=== PATIENT | female | born 2000 | race Caucasian/White ===

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

== ENCOUNTER 2022-03-01 07:42 | Inpatient (IN) ==
--- NOTE | 2022-03-01 10:56 | History & Physical Report ---
Date of Service March 01, 2022 Assessment & Plan (1) with 39 completed weeks gestation: (2) Encounter for supervision of normal intrauterine in primigravida, antepartum: Plan 21 year old female G1PO at 40 0/7. Irregular contractions. Plan for induction today. Admission and Anticipated Discharge Date Admission Date: March 01, 2022 History of Present Illness Primary Care Provider: Malik Mckeon DO More is a 21 y/o female currently at 40 WGA with an VIELKA 03/01/2022 as determined by LMP who is here for induction. Irregular contractions; + movement; Minimal fluid loss- feels like she may have lost mucosus plug; no bloody show External FHT and external uterine monitors used; Category 1 tracing; moderate FHT variability. Had regular appointments with OB. Labs: (07/31/21) Blood type: A+ Antibody screen: Neg Hg: pending (today) Hct: pending (today) WBC: pending (today) Plt: pending (today) Rubella: immune VDRL/RPR: nonreactive Gonorrhea: neg Chlamydia: neg HIV: neg HbSAg: neg GBS: neg Other screens: neg cf/sma 07/2021 declines cfdna declines quad/afp - sln Allergies Allergy/AdvReac Type Severity Reaction Status Date / Time No Known Allergies Allergy Verified 02/26/22 10:36 Home Medications Medication Instructions Recorded Confirmed Type prenat.vits,bryan,hgp-hhzk-crcfe 1 tab PO DAILY 02/23/22 02/26/22 History Patient History Medical History No pertinent past medical history Surgical History S/P wisdom tooth extraction Family History (Updated 07/27/21 @ 13:18 by Izabella WILKES, MARILYNN) Grandmother (Maternal) Diabetes Focal glomerular sclerosis Family/Other Breast cancer Ovarian cancer Denies family history of Pancreatic cancer Prostate cancer Colorectal cancer Uterine cancer Social History (Updated 07/27/21 @ 13:11 by Izabella WILKES, RN) Smoking Status: Never smoker Second Hand Exposure: No; Do You Dip or Chew Tobacco: No; Tobacco Cessation Education Requested by Patient: No Hx Alcohol Use: No Hx Substance Use: No Preferred Language: Citizen Of The [place] Communication Ability: Effective Financial Services Auditor Required: No Beliefs That Will Affect Care: None marital status: Single marital status details: Christopher Licea (17) [phone] Current Living Situation: Parent and Significant Other Current Living Situation Comment: ANURADHA White, [place] Mother, Eder 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 Denies breast pain. Denies dysuria. Denies headache or changes in vision. Physical Exam Physical Exam: General: Alert, oriented. No acute distress. Cardiac: Regular rate and rhythm, no murmurs/rubs/gallops. Respiratory: Clear to auscultation bilaterally a/p, no wheezes/rales/rhonchi. No increased work of breathing. Symmetrical chest rise. No respiratory distress. Abdomen: Gravid Lower Extremities: No lower extremity edema or swelling. No deep calf pain. Joshua's negative bilaterally Supervising Physician Co-Signing Physician Notes Resident Physician Supervision Note: I was present with Dr. Liu during the history and exam. I discussed the case with the resident and agree with the findings and plan as documented in the note. Any exceptions or clarifications are listed here: pt here for elective induction at 39+wks. sve 2/90/-2 soft mid. efw 7-8#. plan pitocin and then arom. denies ?s and desires to proceed. routine labs. Fhts categ 1. Documented By: Gay Pandey MD, FACOG
[2022-03-01] MEDS ORDERED: OXYTOCIN 30 UNITS/500 ML BAG IV PRN ×2 (11:17→11:33)
[2022-03-01] MEDS: LACTATED RINGER'S 1,000 ML IV PRN ×4 (12:08→23:02)
[2022-03-01 12:29] LABS: Hemoglobin 9.4 g/dl (12.0-16.0); Mean Corpuscular Hemoglobin 26.3 pg (25.0-34.0); Mean Corpuscular Hgb Conc 31.3 g/dL (32.0-36.0); Mean Corpuscular Volume 83.8 fL (80.0-100.0); Mean Platelet Volume 11.2 fL (9.4-12.3); Platelet Count 228 K/uL (130-400); RDW Standard Deviation 42.5 fL (36.4-46.3); Red Blood Count 3.58 M/uL (3.93-5.22); White Blood Count 10.46 K/ul (4.8-10.8)
--- NOTE | 2022-03-01 16:04 | Labor Progress Brief Note ---
Date of Service March 01, 2022 Subjective feeling ctx. Assessment & Plan (1) with 39 completed weeks gestation: (2) Encounter for induction of labor: Plan cont with pit,will see how arom helps labor pattern. fhts categ 1. Admission and Anticipated Discharge Date Admission Date: March 01, 2022 Physical Exam Constitutional: WD/WN, vitals as above Genitourinary: Manual OB Exam: + cervical dilation (2-3cm), + cervical effacement 100%, + station -2 and + amniotic fluid (AROM) clear OB Exam Monitor Tracing: + external FHT monitor used, + external uterine monitor used (q2., pit at 15), + category I and + normal FHT variability Results & Data ([facility]) Vital Signs (Past 12 Hours) Vital Signs Temp Pulse Resp BP 03/01/22 15:54 72 138/71 03/01/22 15:23 76 130/71 03/01/22 15:01 16 03/01/22 15:01 98.1 F 16 03/01/22 14:53 77 127/78 03/01/22 14:01 88 133/78 03/01/22 13:47 84 130/72 03/01/22 13:30 90 131/74 03/01/22 13:16 83 133/73 03/01/22 13:01 79 130/70 03/01/22 12:45 88 129/76 03/01/22 11:45 16 03/01/22 11:45 16 03/01/22 12:31 90 135/79 03/01/22 12:18 81 128/74 03/01/22 11:09 97.9 F 18 Coding Level of Care Code None Diagnoses with 39 completed weeks gestation Z3A.39 Encounter for induction of labor Z34.90
[2022-03-01] MEDS ORDERED: ePHEDrine sulfate 50 MG/ML AMP ONE (16:59)
[2022-03-01] MEDS ORDERED: fentaNYL citrate 100 MCG/2 ML VIAL ONE (17:00)
[2022-03-01] MEDS ORDERED: BUPIVACAINE 0.25% 30 ML VIAL ONE (17:00)
[2022-03-01] MEDS ORDERED: SODIUM CHLORIDE 0.9% INJ 10 ML VIAL ONE (17:00)
[2022-03-01] MEDS ORDERED: fentaNYL 2MCG/ML ROPIVACAINE 1.25MG/ML 100 ML BAG EPI ONE (17:01)
[2022-03-01] MEDS ORDERED: LIDOCAINE 2%/EPINEPHRINE 1:200,000 20 ML SDV ONE (17:01)
[2022-03-01] MEDS ORDERED: ONDANSETRON INJ 2 MG/ML 2 ML VIAL IV PRN (17:08)
[2022-03-01] MEDS ORDERED: fentaNYL 2MCG/ML ROPIVACAINE 1.25MG/ML 100 ML BAG EPI PRN (17:08)
[2022-03-01] MEDS ORDERED: ePHEDrine sulfate 50 MG/ML AMP IV PRN (17:08)
[2022-03-01] MEDS ORDERED: NALBUPHINE HCL INJ 10 MG/ML AMP IV PRN (17:08)
[2022-03-01] MEDS ORDERED: diphenhydrAMINE 50 MG/ML VIAL IV PRN (17:08)
[2022-03-01] MEDS ORDERED: NALOXONE HCL 0.4 MG/1 ML VIAL/CARP IV PRN (17:08)
[2022-03-01] MEDS ORDERED: NALOXONE HCL 1 MG in SODIUM CHLORIDE 0.9% 1000ML 1,000 ML IV PRN (17:08)
--- NOTE | 2022-03-01 17:08 | Anesthesiology Consultation ---
Date of Service March 01, 2022 Assessment & Plan ASA ASA2 Proposed Anesthesia Anesthesia Type: Labor Epidural Risk / Benefits Reviewed With: PT / POA / Parent / Guardian, Accepts Plan and Informed Consent Obtained History Height/Weight Height: 5 ft 6 in Weight: 78.018 kg Allergies Allergy/AdvReac Type Severity Reaction Status Date / Time No Known Allergies Allergy Verified 03/01/22 14:21 Medications Home Medications Medication Instructions Recorded Confirmed Last Taken prenat.vits,bryan,fxi-[id number]-[id number] 1 tab PO DAILY 02/23/22 03/01/22 Unknown Active Medications Generic Name Dose Route Start Last Admin Trade Name Freq PRN Reason Stop Dose Admin Oxytocin 30 units in 500 mls @ 15 mls/hr 03/01/22 11:33 03/01/22 15:45 Pitocin IV 03/03/22 11:32 0.9 units/hr .Q24H PRN 15 mls/hr Labor Induction/Augmentation Titration Protocol 0.9 UNITS/HR Lactated Ringer's 1,000 mls @ 125 mls/hr 03/01/22 11:17 03/01/22 17:46 Lr IV 03/03/22 11:16 125 mls/hr .Q8H PRN Infusion L&D Protocol Protocol Past Medical History Medical History (Updated 03/01/22 @ 16:04 by Gay Pandey MD, FACOG) No pertinent past medical history Exercise / Class Metabolic Activity II 4-5 Yardwork/Stairs/Walk up hill Past Family History Family History Grandmother (Maternal) Diabetes Focal glomerular sclerosis Family/Other Breast cancer Ovarian cancer Denies family history of Pancreatic cancer Prostate cancer Colorectal cancer Uterine cancer Past Surgical History Surgical History S/P wisdom tooth extraction Past Anesthesia History No Hx of Anesthesia Complications and No Family Hx of Anesthesia Complications History of PONV No Hx of PONV and No Hx of Motion Sickness Social History Smoking Status: Never smoker Do You Dip or Chew Tobacco: No Hx Alcohol Use: No Hx Substance Use: No substance use type: does not use Review of Systems denies fever/cough/ colds/ chest pain/ SOB/ RICK denies RICK Physical Exam Vital Signs Last Vital Signs Temp 36.7 C 07/22/22 16:01 Pulse 91 H 03/01/22 17:48 Resp 16 03/01/22 17:45 BP 148/65 H 03/01/22 17:48 Pulse Ox 100 03/01/22 17:47 ENMT Mouth: no TMJ abnormality and no dentition abnormality Thyromental Distance: > or= 3.5 Finger Breadths Mallampati Class: II Neck neck extension not limited Respiratory normal respiratory effort; no respiratory distress Auscultation: lungs clear to auscultation bilaterally Cardiovascular Rate/Rhythm: regular rate and regular rhythm Neurologic moves all extremities Psychiatric Orientation: alert and oriented x 3 Testing Laboratory Results 03/01/22 11:44
[2022-03-01] MEDS ORDERED: NURSING L&D Epidural Breakthrough Pain Update ONE (20:21)
[2022-03-02] MEDS ORDERED: MINERAL OIL 30 ML UDC ONE (04:52)
[2022-03-02] MEDS ORDERED: miSOPROStoL 200 MCG TAB ONE (05:30)
[2022-03-02] MEDS ORDERED: METHYLERGONOVINE MALEATE 0.2 MG/ML AMP ONE (05:30)
[2022-03-02] MEDS ORDERED: IBUPROFEN 600 MG TAB PO PRN (05:48)
[2022-03-02] MEDS ORDERED: OXYTOCIN 30 UNITS/500 ML BAG IV PRN (05:48)
[2022-03-02] MEDS ORDERED: ACETAMINOPHEN 325 MG TAB PO PRN (05:48)
[2022-03-02] MEDS ORDERED: miSOPROStoL 200 MCG TAB PR ONE (05:48)
[2022-03-02] MEDS ORDERED: HYDROCORTISONE ACETATE 25 MG SUPP PR PRN (05:48)
[2022-03-02] MEDS ORDERED: DIPHTHERIA/TETANUS/PERTUSSIS 0.5 ML SYR/VIAL IM ONE (05:48)
[2022-03-02] MEDS ORDERED: METHYLERGONOVINE MALEATE 0.2 MG/ML AMP IM ONE (05:48)
[2022-03-02] MEDS ORDERED: BENZOCAINE 20% AER SPR 82.5 GM CAN EXT PRN (05:48)
--- NOTE | 2022-03-02 07:45 | Anesthesia Procedure Note ---
Date of Service March 02, 2022 Anesthesia Post Epidural Note Vital Signs Vital Signs: Temp Pulse Resp BP Pulse Ox 37.0 C 86 18 155/74 H 100 03/02/22 05:50 03/02/22 07:34 03/02/22 06:50 03/02/22 07:34 03/02/22 05:49 Pain Intensity Abdomen: Pain Intensity: 0 Notes Mental Status: alert / awake / arousable and participated in evaluation Nausea / Vomiting: adequately controlled Pain: adequately controlled Airway Patency, RR, SpO2: stable & adequate BP & HR: stable & adequate Hydration State: stable & adequate Neuraxial Anesthesia: was administered and sensory block is resolving Anesthetic Complications: no major complications apparent Epidural: Removed without complications and With tip intact
--- NOTE | 2022-03-02 09:47 | Operative Report (OR) ---
DATE OF SERVICE: 03/02/2022 PROCEDURE: Vacuum-assisted vaginal delivery with first-degree perineal laceration repair. SURGEON: Perry Lane MD PREOPERATIVE DIAGNOSES: 1. Single intrauterine at 40 weeks 1 day gestational age. 2. Elective induction of labor. 3. Maternal exhaustion. POSTOPERATIVE DIAGNOSES: 1. Single intrauterine at 40 weeks 1 day gestational age. 2. Elective induction of labor. 3. Maternal exhaustion. 4. Status post procedure. ESTIMATED BLOOD LOSS: 300 mL. DRAINS: Straight cath at the completion of the case. URINE OUTPUT: Approximately 300 mL via straight cath. COMPLICATIONS: Shoulder dystocia of 80 seconds duration. FINDINGS: Viable female with weight and Apgars pending. INDICATIONS: More is a 21-year-old G1, P0, admitted at 40 weeks 0 days gestational age for induction of labor for term . The patient was initially noted to be 2 cm dilated and was started on oxytocin per regular protocol. She later received an epidural and underwent artificial rupture of membranes for clear fluid. She progressed in labor to complete-complete, +2 station, at which time she felt the urge to push. The patient pushed for 2-1/2 hours and achieved +3 station. At that time, the patient was noted to be moving the baby well with pushing, although was exhausted and started to struggle with the pushing efforts. I discussed a vacuum-assisted delivery due to the maternal exhaustion and we discussed the risks of a vacuum-assisted delivery including the risk of a cephalohematoma, scalp lacerations, risk of the failure, and risk of shoulder dystocia. The patient verbally agreed to the vacuum-assisted delivery. DESCRIPTION OF PROCEDURE: The patient progressed to 10 cm dilated, 100% effaced, positive 3 station, pushed for 2-1/2 hours after which the patient was verbally consented for a vacuum-assisted vaginal delivery. The vacuum was applied 2 cm anterior to posterior fontanelle and over 3 contractions, traction was applied to within the recommended range based on the gauge from the vacuum. The suction on the vacuum was increased to within the green zone. The was noted to move down well and was at the time that the vacuum was removed, which was midway through the third contraction. The 's head then protruded with the last push on the third contraction and the patient was asked to stop pushing. A check for nuchal cord was performed and no nuchal cord was noted. There was noted to be a tight shoulder. The space on the anterior shoulder to the pubic bone was noted to be rather tight and it appeared that this was likely going to be a shoulder dystocia. The total shoulder dystocia time was 80 seconds. I immediately asked nursing to lay the head of the bed down and attempt to deliver the anterior shoulder. After the attempt was unsuccessful, I asked the nurse to apply suprapubic pressure, and then once again tried to attempt to deliver the anterior shoulder. The anterior shoulder did not deliver despite adequate attempt at the suprapubic pressure. Decision was made to try a delivery of the posterior shoulder. The axilla of the posterior arm was able to be hooked, was able to be grasped and brought up to the level of the introitus. The arm was then able to be swept outwardly for delivery of the posterior arm and shoulder. The anterior arm and shoulder then followed easily and the remaining body also delivered without any additional difficulty. was floppy upon delivery and the cord was quickly double clamped and cut. was taken to the waiting nursery staff. Cord blood segment and cord blood were obtained. Cord segment was ultimately disposed of as 5 minute was noted to be 9. The was noted to be vigorous shortly after delivery and was evaluated by the nursery staff at the warmer. Attention was then turned to delivery of the placenta, which was delivered intact, 3-vessel cord, gentle cord traction. On inspection of the perineum, vagina, cervix, there was noted to be a first-degree perineal laceration with extension of the right labia. These were repaired with 3-0 Vicryl in continuous running stitch. Needle, sponge, and instrument counts were correct at the completion of the case. The patient was given Methergine IM and Cytotec SC prior to ending the case. Both mother and were stable in the immediate post-delivery period. Job ID: [id number] [facility]
[2022-03-02] MEDS: DOCUSATE SODIUM 100 MG CAP PO SCH ×2 (10:46→21:06)
[2022-03-02] MEDS: PRENATAL VITAMIN 1 TAB PO SCH (10:46)
[2022-03-02] MEDS: FERROUS SULFATE 325 MG TAB PO SCH (10:46)
--- NOTE | 2022-03-03 05:44 | Obstetrical Progress Note ---
Date of Service March 03, 2022 Assessment & Plan (1) Vacuum-assisted vaginal delivery: Plan stable routine care. desires dc home. instructions reviewed. plan 6wk pp check. rec iron supplements + mvi daily at least for 6wks. Day #:: 1 Subjective Ambulation: ambulating normally Voiding: no voiding problems Diet Tolerance:: regular diet Lochia:: Small Feeding Type:: breast feeding denies complaints. wants to go home today. Constitutional: + as per Subjective / HPI Physical Exam Constitutional WD/WN, vitals as above Respiratory normal respiratory effort, lungs clear to auscultation Cardiovascular Rate/Rhythm: regular rate and regular rhythm Gastrointestinal (Abdomen) Inspection/Auscultation: abdomen normal to inspection Percussion/Palpation: abdomen soft Fundus firm 2cm down Musculoskeletal nt calves no edema Neurologic grossly normal Psychiatric A+Ox3, euthymic affect Results & Data ([facility]) Vital Signs (Past 12 Hours) Vital Signs Temp Pulse Resp BP 03/03/22 03:00 98.1 F 77 18 109/62 03/02/22 23:05 98.6 F 76 18 117/72 03/02/22 19:15 98.1 F 91 H 18 135/83
[2022-03-03 06:05] LABS: Hematocrit (blood only) 28.1 % (34.1-44.9); Hemoglobin 8.8 g/dl (12.0-16.0); Mean Corpuscular Hemoglobin 26.5 pg (25.0-34.0); Mean Corpuscular Hgb Conc 31.3 g/dL (32.0-36.0); Mean Corpuscular Volume 84.6 fL (80.0-100.0); Platelet Count 197 K/uL (130-400); RDW Coefficient of Variation 14.2 % (11.5-14.5); RDW Standard Deviation 43.6 fL (36.4-46.3); Red Blood Count 3.32 M/uL (3.93-5.22); White Blood Count 20.31 K/ul (4.8-10.8)
[2022-03-03] MEDS: DOCUSATE SODIUM 100 MG CAP PO SCH (09:15)
[2022-03-03] MEDS: PRENATAL VITAMIN 1 TAB PO SCH (09:15)
[2022-03-03] MEDS: FERROUS SULFATE 325 MG TAB PO SCH (09:15)
[2022-03-03] MEDS ORDERED: bisacodyL 5 MG TABEC PO SCH (20:00)
[2022-03-04] MEDS ORDERED: bisacodyL 10 MG SUPP PR PRN (05:48)
--- NOTE | 2022-03-05 05:57 | Discharge Summary (DS) ---
DATE OF ADMISSION: 03/01/2022. DATE OF DISCHARGE: 03/03/2022. HOSPITAL COURSE: The patient was admitted for an elective induction of labor at 40 weeks 0 days' ges tational age. The patient progressed in labor per operative report and ultimately had a vacuum-perry nancy vaginal delivery secondary to maternal exhaustion. This was complicated by shoulder dystocia. Kwesi benavides see operative report for additional details. The patient remained in-house until da y 2, at which time she was discharged home in stable condition. The patient was provided both writte n and verbal discharge instructions prior to discharge. Job ID: [id number]
== END 2022-03-03 09:40 | disposition home or self-care (01) | DRG 807 ==
LOC: 4S1 10:46 → 4E2 03-02 09:00

== ENCOUNTER 2024-07-04 15:26 | Inpatient (IN) ==
[2024-07-04] MEDS ORDERED: OXYTOCIN 30 UNITS/NSS 30 UNITS/500 ML BAG IV PRN (16:17)
[2024-07-04] MEDS ORDERED: LIDOCAINE 1% LOCAL 20 ML VIAL INFIL PRN (16:17)
[2024-07-04] MEDS ORDERED: ACETAMINOPHEN 325 MG TAB PO PRN (16:17)
[2024-07-04] MEDS ORDERED: CALCIUM CARBONATE 500 MG CHEWABLE TAB PO PRN (16:17)
[2024-07-04 16:53] LABS: Hematocrit (blood only) 31.8 % (37.0-47.0); Hemoglobin 10.2 g/dl (12.0-16.0); Mean Corpuscular Hemoglobin 27.3 pg (25.0-34.0); Mean Corpuscular Hgb Conc 32.1 g/dL (32.0-36.0); Mean Platelet Volume 11.6 fL (9.4-12.4); Platelet Count 255 K/uL (130-400); RDW Coefficient of Variation 13.5 % (11.5-14.5); RDW Standard Deviation 41.2 fL (36.4-46.3); Red Blood Count 3.74 M/uL (4.20-5.40)
[2024-07-04 17:09] LABS: Albumin Level 3.6 gm/dl (3.4-5.0); BUN Creatinine Ratio 11.9 (10-20); Bilirubin,Total 0.7 mg/dl (0.2-1.0); Calcium 9.3 mg/dl (8.6-10.3); Creatinine Clr Calc Pharmacy 175.9 ml/min; Globulin 3.5 gm/dl (2.5-4.0); Potassium 4.1 mmol/L (3.5-5.1); Total Protein 7.1 gm/dl (6.0-8.3)
--- NOTE | 2024-07-04 17:24 | Anesthesiology Consultation ---
Date of Service July 04, 2024 Assessment & Plan Chart Review Chart Review: Acceptable Risk for Surgery, Patient NOT seen in Pre Admission Testing and Acceptable Risk for Labor Epidural Consults Requested none ASA ASA2 Proposed Anesthesia Anesthesia Type: Labor Epidural and CSE History Height/Weight Height: 5 ft 6 in Weight: 98.883 kg Allergies Allergy/AdvReac Type Severity Reaction Status Date / Time No Known Allergies Allergy Verified 07/02/24 09:19 Medications Home Medications Medication Instructions Recorded Confirmed Last Taken prenat.vits,bryan,sng-bvpr-gqzbs 1 tab PO DAILY 02/23/22 07/04/24 07/04/24 07:00 Past Medical History Medical History No pertinent past medical history obese anemia gerd ?Hx/o Hep. B Exercise / Class Metabolic Activity II 4-5 Yardwork/Stairs/Walk up hill Past Family History Family History Grandmother (Maternal) Diabetes Focal glomerular sclerosis Family/Other Breast cancer Ovarian cancer Denies family history of Pancreatic cancer Prostate cancer Colorectal cancer Uterine cancer Past Surgical History Surgical History S/P wisdom tooth extraction Past Anesthesia History No Hx of Anesthesia Complications and No Family Hx of Anesthesia Complications History of PONV No Hx of PONV and No Hx of Motion Sickness Social History Smoking Status: Never smoker Do You Dip or Chew Tobacco: No Hx Alcohol Use: No Hx Substance Use: No substance use type: does not use Physical Exam Vital Signs Last Vital Signs Temp 37.1 C 07/04/24 15:45 Pulse 88 07/04/24 17:00 Resp 18 07/04/24 15:45 BP 146/81 H 07/04/24 17:00 Testing Laboratory Results 07/04/24 16:38 07/04/24 16:38
[2024-07-04] MEDS: LACTATED RINGER'S 1,000 ML IV SCH (17:55)
[2024-07-04] MEDS: fentaNYL citrate PF 100 MCG/2 ML VIAL ONE (18:27)
[2024-07-04] MEDS: BUPIVACAINE 0.25% PF 30 ML VIAL ONE (18:27)
[2024-07-04] MEDS: LIDOCAINE 2%/EPINEPHRINE 1:200,000 20 ML PF ONE (18:32)
[2024-07-04] MEDS ORDERED: NALBUPHINE HCL INJ 10 MG/ML AMP IV PRN (18:39)
[2024-07-04] MEDS ORDERED: NALOXONE HCL 0.4 MG/1 ML VIAL/CARP IV PRN (18:39)
[2024-07-04] MEDS ORDERED: SODIUM CHLORIDE 0.9% PF INJ 10 ML VIAL EPI PRN (18:39)
[2024-07-04] MEDS ORDERED: ROPIVACAINE 0.5% PF 5 MG/ML 20 ML VIAL EPI PRN (18:39)
[2024-07-04] MEDS ORDERED: fentaNYL citrate PF 100 MCG/2 ML VIAL EPI PRN (18:39)
[2024-07-04] MEDS ORDERED: NALOXONE HCL 1 MG in SODIUM CHLORIDE 0.9% 1,000 ML IV PRN (18:39)
[2024-07-04] MEDS ORDERED: PROMETHAZINE 6.25 MG/50.25 ML BAG IV PRN (18:39)
[2024-07-04] MEDS ORDERED: LIDOCAINE 2% MPF LOCAL 5 ML VIAL EPI PRN (18:39)
[2024-07-04] MEDS ORDERED: ePHEDrine sulfate 50 MG/ML AMP IV PRN (18:39)
[2024-07-04] MEDS ORDERED: ONDANSETRON INJ 2 MG/ML 2 ML VIAL IV PRN (18:39)
[2024-07-04] MEDS: fentANYL 2 MCG/ML BUPIVacaine 0.125%-NSS 100ML BAG ONE (18:41)
[2024-07-04] MEDS: SODIUM CHLORIDE 0.9% PF INJ 10 ML VIAL ONE (18:45)
[2024-07-04] MEDS: BUPIVACAINE 0.25% PF 30 ML VIAL EPI STA (18:48)
[2024-07-04] MEDS: SODIUM CHLORIDE 0.9% PF INJ 10 ML VIAL EPI STA (18:48)
[2024-07-04] MEDS: LIDOCAINE 2%/EPINEPHRINE 1:200,000 20 ML PF EPI STA (18:48)
[2024-07-04] MEDS: fentaNYL citrate PF 100 MCG/2 ML VIAL EPI STA (18:48)
[2024-07-04] MEDS: ePHEDrine sulfate 50 MG/ML AMP ONE (19:23)
--- NOTE | 2024-07-04 19:33 | History & Physical Report ---
Date of Service July 04, 2024 Assessment & Plan (1) Supervision of normal intrauterine in multigravida: Plan: IUP at term in labor epidural when requested pitocin if needed for augmentation anticipate vaginal Admission and Anticipated Discharge Date Admission Date: July 04, 2024 History of Present Illness Primary Care Provider: Malik Mckeon DO Patient is a 23 yo EDC 07/04/24 who presents at 40 weeks with regular contractions every 5 minutes. (+) bloody show. Was to be induced tomorrow. complicated by prior LGA fetus. Most recent growth scan at 37 weeks EFW 64%/ AC 75%. GBS- negative Allergies Allergy/AdvReac Type Severity Reaction Status Date / Time No Known Allergies Allergy Verified 07/02/24 09:19 Home Medications Medication Instructions Recorded Confirmed Type prenat.vits,bryan,wcf-dgoe-jyuff 1 tab PO DAILY 02/23/22 07/04/24 History Patient History Medical History No pertinent past medical history Surgical History S/P wisdom tooth extraction Family History Grandmother (Maternal) Diabetes Focal glomerular sclerosis Family/Other Breast cancer Ovarian cancer Denies family history of Pancreatic cancer Prostate cancer Colorectal cancer Uterine cancer Social History Smoking Status: Never smoker Second Hand Exposure: No; Do You Dip or Chew Tobacco: No; Hx Alcohol Use: No Hx Substance Use: No Preferred Language: Yoruba Communication Ability: Effective Rooming House Operator Required: No Beliefs That Will Affect Care: None marital status: Single marital status details: Christopher Licea (20) [phone] Current Living Situation: Parent and Significant Other Current Living Situation Comment: Patient lives with fob and daughter. 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 Feels Safe at Home: Yes Safety Concerns: Feels Safe At This Time Physical Activity Frequency: Other Physical Activity Frequency Comment: regularly Assistive Devices: None Review of Systems All systems reviewed & are unremarkable except as noted in HPI & below Physical Exam Constitutional: WD/WN, vitals as above Psychiatric: A+Ox3, euthymic affect Genitourinary: OB Exam Abdomen: + vertex, + estimated weight (8-9 pounds) and + regular contractions (Q 5 minutes) Manual OB Exam: + cervical dilation 6 cm, + cervical effacement 100%, + station -2 and + amniotic fluid (AROM for clear fluid) OB Exam Monitor Tracing: + external FHT monitor used, + external uterine monitor used, + category I and + normal FHT variability Results & Data Vital Signs (Past 12 Hours) Vital Signs Temp Pulse Resp BP Pulse Ox 07/04/24 19:26 102 H 100 07/04/24 19:21 97 H 100 07/04/24 19:18 92 H 140/69 07/04/24 19:16 108 H 100 07/04/24 19:11 103 H 100 07/04/24 19:06 108 H 99 07/04/24 19:03 99 H 133/67 07/04/24 19:01 100 H 99 07/04/24 18:56 110 H 100 07/04/24 18:51 98 H 98 07/04/24 18:47 96 H 106/57 L 07/04/24 18:46 95 H 98 07/04/24 18:43 93 H 109/52 L 07/04/24 18:41 92 H 99 07/04/24 18:40 66 100/55 L 07/04/24 18:36 69 100 07/04/24 18:31 125 H 130/73 99 07/04/24 18:26 99 H 99 07/04/24 18:21 97 H 100 07/04/24 18:16 102 H 100 07/04/24 18:12 98.8 F 100 H 18 149/85 H 07/04/24 18:11 97 H 100 07/04/24 17:00 88 146/81 H 07/04/24 16:07 95 H 141/81 H 07/04/24 15:57 105 H 141/95 H 07/04/24 15:51 100 H 135/92 07/04/24 15:45 98.8 F 18 Coding Level of Care Code 31912 INT INP/OBS CARE 1/40MIN Diagnoses Supervision of normal intrauterine in multigravida in third trimester Z34.83 Trimester: third trimester (1) Supervision of normal intrauterine in multigravida Trimester: third trimester Qualified Code(s): Z34.83 - Encounter for supervision of other normal , third trimester
[2024-07-04] MEDS: OXYTOCIN 30 UNITS/NSS 30 UNITS/500 ML BAG IV PRN (20:02)
[2024-07-04] MEDS ORDERED: NURSING L&D Epidural Breakthrough Pain Update ONE (22:15)
[2024-07-05] MEDS: fentANYL 2 MCG/ML BUPIVacaine 0.125%-NSS 100ML BAG EPI PRN (00:45)
[2024-07-05] MEDS: diphenhydrAMINE 50 MG/ML VIAL IV STA (01:51)
[2024-07-05] MEDS: diphenhydrAMINE 50 MG/ML VIAL IV PRN (01:51)
--- NOTE | 2024-07-05 01:59 | Labor Progress Brief Note ---
Date of Service July 05, 2024 Subjective Reason For Note: Requested By MARILYNN cohen at 5 milliunits- ctns Q 2minutes but not consistent. FHT is Category 1 with occasional short variables. was felt to be fully dilated by nurse exam 1 hour ago and pushed briefly but didn't have strong urge to push recheck by nurse now because of increased rectal pressure and feels posterior lip of cervix which feels swollen cervix exam by me now is posterior lip with mild swelling and head is now 0 station will give benadryl 25 mg IV now and increase pit to 7 milliunits. Assessment & Plan Admission and Anticipated Discharge Date Admission Date: July 04, 2024 Results & Data Vital Signs (Past 12 Hours) Vital Signs Temp Pulse Resp BP Pulse Ox 07/05/24 01:48 98 H 142/65 H 07/05/24 01:46 116 H 100 07/05/24 01:41 127 H 100 07/05/24 01:36 93 H 100 07/05/24 01:34 94 H 125/88 07/05/24 01:31 91 H 100 07/05/24 01:26 93 H 100 07/05/24 01:21 91 H 100 07/05/24 01:18 102 H 130/62 07/05/24 01:17 105 H 138/58 L 07/05/24 01:16 120 H 100 07/05/24 01:11 98 H 100 07/05/24 01:06 110 H 100 07/05/24 01:03 100 H 146/66 H 07/05/24 01:01 98 H 100 07/05/24 01:00 18 07/05/24 01:00 98.4 F 18 07/05/24 00:56 95 H 100 07/05/24 00:51 91 H 100 07/05/24 00:48 94 H 133/64 07/05/24 00:46 93 H 100 07/05/24 00:41 118 H 100 07/05/24 00:36 110 H 100 07/05/24 00:33 111 H 145/79 H 07/05/24 00:31 112 H 100 07/05/24 00:26 90 100 07/05/24 00:21 93 H 100 07/05/24 00:17 98 H 129/59 L 07/05/24 00:16 100 H 100 07/05/24 00:11 94 H 100 07/05/24 00:09 107 H 92 07/05/24 00:06 125 H 95 07/05/24 00:03 114 H 126/82 07/05/24 00:01 89 100 07/04/24 23:56 98 H 100 07/04/24 23:51 99 H 100 07/04/24 23:47 96 H 146/79 H 07/04/24 23:46 103 H 100 07/04/24 23:41 91 H 98 07/04/24 23:39 101 H 87 L 07/04/24 23:36 97 H 100 07/04/24 23:32 96 H 139/74 07/04/24 23:31 101 H 100 07/04/24 23:30 18 07/04/24 23:30 98.4 F 18 07/04/24 23:26 100 H 100 07/04/24 23:22 97 H 93 07/04/24 23:21 91 H 100 07/04/24 23:18 112 H 152/72 H 07/04/24 23:16 95 H 100 07/04/24 23:11 100 H 100 07/04/24 23:06 116 H 99 07/04/24 23:02 112 H 141/78 H 07/04/24 23:01 132 H 100 07/04/24 22:56 100 H 100 07/04/24 22:51 100 H 100 07/04/24 22:47 99 H 132/70 07/04/24 22:46 101 H 99 07/04/24 22:41 97 H 100 07/04/24 22:36 103 H 100 07/04/24 22:33 111 H 165/93 H 07/04/24 22:31 89 100 07/04/24 22:26 102 H 100 07/04/24 22:21 105 H 99 07/04/24 22:18 83 144/83 H 07/04/24 22:16 101 H 100 07/04/24 22:11 97 H 100 07/04/24 22:06 98 H 100 07/04/24 22:02 101 H 141/90 H 07/04/24 22:01 88 100 07/04/24 21:56 97 H 100 07/04/24 21:51 101 H 100 07/04/24 21:47 91 H 136/83 07/04/24 21:46 96 H 100 07/04/24 21:41 98 H 100 07/04/24 21:36 92 H 100 07/04/24 21:33 85 134/82 07/04/24 21:31 98 H 100 07/04/24 21:26 93 H 100 07/04/24 21:21 99 H 100 07/04/24 21:18 95 H 136/67 07/04/24 21:16 91 H 100 07/04/24 21:11 87 100 07/04/24 21:06 109 H 100 07/04/24 21:02 87 130/60 07/04/24 21:01 86 100 07/04/24 21:00 18 07/04/24 21:00 98.1 F 18 07/04/24 20:56 94 H 99 07/04/24 20:51 89 100 07/04/24 20:48 89 138/73 07/04/24 20:46 97 H 100 07/04/24 20:41 104 H 100 07/04/24 20:36 88 100 07/04/24 20:33 98 H 141/72 H 07/04/24 20:31 98 H 100 07/04/24 20:26 96 H 100 07/04/24 20:21 98 H 98 07/04/24 20:17 94 H 130/72 07/04/24 20:16 101 H 100 07/04/24 20:11 101 H 100 07/04/24 20:06 94 H 100 07/04/24 20:05 95 H 146/69 H 07/04/24 20:01 94 H 100 07/04/24 19:56 97 H 100 07/04/24 19:51 92 H 100 07/04/24 19:47 87 128/58 L 07/04/24 19:46 92 H 100 07/04/24 19:41 93 H 100 07/04/24 19:36 85 100 07/04/24 19:32 102 H 143/74 H 07/04/24 19:31 90 100 07/04/24 19:26 102 H 100 07/04/24 19:21 97 H 100 07/04/24 19:18 92 H 140/69 07/04/24 19:16 108 H 100 07/04/24 19:11 103 H 100 07/04/24 19:10 98.1 F 18 07/04/24 19:10 18 07/04/24 19:10 98.1 F 18 07/04/24 19:06 108 H 99 07/04/24 19:03 99 H 133/67 07/04/24 19:01 100 H 99 07/04/24 18:56 110 H 100 07/04/24 18:51 98 H 98 07/04/24 18:47 96 H 106/57 L 07/04/24 18:46 95 H 98 07/04/24 18:43 93 H 109/52 L 07/04/24 18:41 92 H 99 07/04/24 18:40 66 100/55 L 07/04/24 18:36 69 100 07/04/24 18:31 125 H 130/73 99 07/04/24 18:26 99 H 99 07/04/24 18:21 97 H 100 07/04/24 18:16 102 H 100 07/04/24 18:12 98.8 F 100 H 18 149/85 H 07/04/24 18:11 97 H 100 07/04/24 17:00 88 146/81 H 07/04/24 16:07 95 H 141/81 H 07/04/24 15:57 105 H 141/95 H 07/04/24 15:51 100 H 135/92 07/04/24 15:45 98.8 F 18 Coding Level of Care Code 84444 SUB INP/OBS CARE
--- NOTE | 2024-07-05 04:25 | Labor Progress Brief Note ---
Date of Service July 05, 2024 Subjective Reason For Note: Requested By RN feeling more pelvic pressure- pitocin on 9 milliunits- but contractions now every 3-5 minutes - FHT reactive with mild short variables occasionally cervix exam -9cm/90/+1 with molding- mild cervical swelling still present despite IV benadryl suspect OP presentation & LGA baby discussed with patient and her that cervix now swelling and still 9 cm - I suspect the head is asynclitic and baby LGA, that proceeding with LTCS would be an option. given it has been difficult to maintain a good contraction pattern, this factor may be the other reason there is arrest of dilation. patient did deliver an 8lb9oz vaginally albeit with vaccuum and shoulder dystocia. she would like to continue to labor and since FHT has been reassuring we will increase the pitocin and reassess in 2 hours if not sooner if she progresses to full dilation Assessment & Plan Admission and Anticipated Discharge Date Admission Date: July 04, 2024 Results & Data Vital Signs (Past 12 Hours) Vital Signs Temp Pulse Resp BP Pulse Ox 07/05/24 04:11 103 H 100 07/05/24 04:06 113 H 99 07/05/24 04:03 120 H 112/59 L 07/05/24 04:01 118 H 100 07/05/24 03:56 133 H 100 07/05/24 03:53 118 H 90 07/05/24 03:51 105 H 100 07/05/24 03:47 113 H 131/81 07/05/24 03:46 107 H 100 07/05/24 03:41 104 H 100 07/05/24 03:36 103 H 100 07/05/24 03:32 111 H 140/72 07/05/24 03:31 97 H 100 07/05/24 03:26 99 H 100 07/05/24 03:21 102 H 100 07/05/24 03:17 200 H 139/69 07/05/24 03:16 102 H 100 07/05/24 03:11 100 H 100 07/05/24 03:06 111 H 100 07/05/24 03:03 127 H 157/70 H 07/05/24 03:01 108 H 100 07/05/24 02:59 116 H 88 L 07/05/24 02:56 107 H 100 07/05/24 02:51 101 H 100 07/05/24 02:46 128 H 100 07/05/24 02:41 99 H 100 07/05/24 02:36 103 H 100 07/05/24 02:33 115 H 133/60 07/05/24 02:31 99 H 100 07/05/24 02:26 128 H 93 07/05/24 02:24 119 H 89 L 07/05/24 02:21 136 H 95 07/05/24 02:19 123 H 126/75 07/05/24 02:16 116 H 100 07/05/24 02:11 107 H 100 07/05/24 02:06 112 H 100 07/05/24 02:03 108 H 135/95 07/05/24 02:01 99 H 100 07/05/24 01:56 103 H 100 07/05/24 01:51 105 H 100 07/05/24 01:48 98 H 142/65 H 07/05/24 01:46 116 H 100 07/05/24 01:41 127 H 100 07/05/24 01:36 93 H 100 07/05/24 01:34 94 H 125/88 07/05/24 01:31 91 H 100 07/05/24 01:26 93 H 100 07/05/24 01:21 91 H 100 07/05/24 01:18 102 H 130/62 07/05/24 01:17 105 H 138/58 L 07/05/24 01:16 120 H 100 07/05/24 01:11 98 H 100 07/05/24 01:06 110 H 100 07/05/24 01:03 100 H 146/66 H 07/05/24 01:01 98 H 100 07/05/24 01:00 18 07/05/24 01:00 98.4 F 18 07/05/24 00:56 95 H 100 07/05/24 00:51 91 H 100 07/05/24 00:48 94 H 133/64 07/05/24 00:46 93 H 100 07/05/24 00:41 118 H 100 07/05/24 00:36 110 H 100 07/05/24 00:33 111 H 145/79 H 07/05/24 00:31 112 H 100 07/05/24 00:26 90 100 07/05/24 00:21 93 H 100 07/05/24 00:17 98 H 129/59 L 07/05/24 00:16 100 H 100 07/05/24 00:11 94 H 100 07/05/24 00:09 107 H 92 07/05/24 00:06 125 H 95 07/05/24 00:03 114 H 126/82 07/05/24 00:01 89 100 07/04/24 23:56 98 H 100 07/04/24 23:51 99 H 100 07/04/24 23:47 96 H 146/79 H 07/04/24 23:46 103 H 100 07/04/24 23:41 91 H 98 07/04/24 23:39 101 H 87 L 07/04/24 23:36 97 H 100 07/04/24 23:32 96 H 139/74 07/04/24 23:31 101 H 100 07/04/24 23:30 18 07/04/24 23:30 98.4 F 18 07/04/24 23:26 100 H 100 07/04/24 23:22 97 H 93 07/04/24 23:21 91 H 100 07/04/24 23:18 112 H 152/72 H 07/04/24 23:16 95 H 100 07/04/24 23:11 100 H 100 07/04/24 23:06 116 H 99 07/04/24 23:02 112 H 141/78 H 07/04/24 23:01 132 H 100 07/04/24 22:56 100 H 100 07/04/24 22:51 100 H 100 07/04/24 22:47 99 H 132/70 07/04/24 22:46 101 H 99 07/04/24 22:41 97 H 100 07/04/24 22:36 103 H 100 07/04/24 22:33 111 H 165/93 H 07/04/24 22:31 89 100 07/04/24 22:26 102 H 100 07/04/24 22:21 105 H 99 07/04/24 22:18 83 144/83 H 07/04/24 22:16 101 H 100 07/04/24 22:11 97 H 100 07/04/24 22:06 98 H 100 07/04/24 22:02 101 H 141/90 H 07/04/24 22:01 88 100 11/24/24 21:56 97 H 100 07/04/24 21:51 101 H 100 07/04/24 21:47 91 H 136/83 07/04/24 21:46 96 H 100 07/04/24 21:41 98 H 100 07/04/24 21:36 92 H 100 07/04/24 21:33 85 134/82 07/04/24 21:31 98 H 100 07/04/24 21:26 93 H 100 07/04/24 21:21 99 H 100 07/04/24 21:18 95 H 136/67 07/04/24 21:16 91 H 100 07/04/24 21:11 87 100 07/04/24 21:06 109 H 100 07/04/24 21:02 87 130/60 07/04/24 21:01 86 100 07/04/24 21:00 18 07/04/24 21:00 98.1 F 18 07/04/24 20:56 94 H 99 07/04/24 20:51 89 100 07/04/24 20:48 89 138/73 07/04/24 20:46 97 H 100 07/04/24 20:41 104 H 100 07/04/24 20:36 88 100 07/04/24 20:33 98 H 141/72 H 07/04/24 20:31 98 H 100 07/04/24 20:26 96 H 100 07/04/24 20:21 98 H 98 07/04/24 20:17 94 H 130/72 07/04/24 20:16 101 H 100 24 20:11 101 H 100 07/04/24 20:06 94 H 100 07/04/24 20:05 95 H 146/69 H 07/04/24 20:01 94 H 100 24 19:56 97 H 100 07/04/24 19:51 92 H 100 24 19:47 87 128/58 L 07/04/24 19:46 92 H 100 24 19:41 93 H 100 07/04/24 19:36 85 100 24 19:32 102 H 143/74 H 24 19:31 90 100 24 19:26 102 H 100 07/04/24 19:21 97 H 100 07/04/24 19:18 92 H 140/69 07/04/24 19:16 108 H 100 07/04/24 19:11 103 H 100 07/04/24 19:10 98.1 F 18 07/04/24 19:10 18 07/04/24 19:10 98.1 F 18 07/04/24 19:06 108 H 99 07/04/24 19:03 99 H 133/67 07/04/24 19:01 100 H 99 07/04/24 18:56 110 H 100 07/04/24 18:51 98 H 98 07/04/24 18:47 96 H 106/57 L 07/04/24 18:46 95 H 98 07/04/24 18:43 93 H 109/52 L 07/04/24 18:41 92 H 99 07/04/24 18:40 66 100/55 L 07/04/24 18:36 69 100 07/04/24 18:31 125 H 130/73 99 07/04/24 18:26 99 H 99 07/04/24 18:21 97 H 100 07/04/24 18:16 102 H 100 07/04/24 18:12 98.8 F 100 H 18 149/85 H 07/04/24 18:11 97 H 100 07/04/24 17:00 88 146/81 H Coding Level of Care Code 98487 SUB INP/OBS CARE
[2024-07-05] MEDS: BUPIVACAINE 0.25% PF 30 ML VIAL EPI PRN (05:47)
--- NOTE | 2024-07-05 05:50 | Anesthesia Procedure Note ---
Date of Service July 05, 2024 Anesthesia Epidural Re-Dose Vital Signs Temp Pulse Resp BP Pulse Ox 36.7 C 118 H 18 114/62 100 07/05/24 05:00 07/05/24 05:46 07/05/24 05:00 07/05/24 05:33 07/05/24 05:46 Notes Pain Intensity: 9 Dilatation (cm): 8.0 Effacement (%): 80 Stuck at 9+ dilation. Increasing pain. Epidural sensory level excellent on both sides up to at least T6. Epidural dosed with 8cc 0.25% bupivicane. After Epidural Re-Dose Mental Status: alert / awake / arousable Pain: improving with treatment Airway Patency, RR, SpO2: stable & adequate BP & HR: stable & adequate
[2024-07-05] MEDS ORDERED: LACTATED RINGER'S 1,000 ML IV SCH ×3 (08:00→10:51)
--- NOTE | 2024-07-05 08:11 | Labor Progress Brief Note ---
Date of Service July 05, 2024 Subjective Reason For Note: Routine Evaluation pitocin at 11 milliunits - ctns every3 minutes - moderate FHT reassuring cervix exam 8cm/+1(significant molding)/100 cervix with no change for 4 hours despite adequate contractions Assessment & Plan (1) Arrest of dilation, delivered, current hospitalization: Plan: no cervical change for 4 hours, in fact, cervix is now less dilated at 8 cm. discussed options with patient at this time- continue induction or proceed with LTCS given events surrounding prior vaginal delivery, ( vaccuum delivery/ shoulder dystocia) patient and would like to proceed with section. Admission and Anticipated Discharge Date Admission Date: July 04, 2024 Results & Data Vital Signs (Past 12 Hours) Vital Signs Temp Pulse Resp BP Pulse Ox O2 Del Method 07/05/24 08:03 104 H 122/72 07/05/24 08:01 105 H 100 07/05/24 07:56 111 H 100 07/05/24 07:51 120 H 100 07/05/24 07:47 118 H 132/75 07/05/24 07:46 122 H 100 07/05/24 07:45 108 H 93 07/05/24 07:41 118 H 100 07/05/24 07:36 98 H 100 07/05/24 07:34 104 H 133/67 07/05/24 07:33 110 H 140/105 H 07/05/24 07:31 116 H 99 07/05/24 07:30 16 07/05/24 07:30 16 07/05/24 07:26 110 H 100 07/05/24 07:25 98.1 F 18 07/05/24 07:25 18 07/05/24 07:25 98.1 F 18 07/05/24 07:21 Room Air 07/05/24 07:21 111 H 100 07/05/24 07:17 108 H 134/62 07/05/24 07:16 110 H 100 07/05/24 07:11 111 H 100 07/05/24 07:06 102 H 100 07/05/24 07:03 98 H 121/65 07/05/24 07:01 97 H 100 07/05/24 06:56 93 H 100 07/05/24 06:51 92 H 100 07/05/24 06:47 88 103/59 L 07/05/24 06:46 81 99 07/05/24 06:41 83 100 07/05/24 06:36 83 100 07/05/24 06:33 88 119/58 L 07/05/24 06:31 100 H 100 07/05/24 06:26 83 100 07/05/24 06:21 82 100 07/05/24 06:18 88 116/56 L 07/05/24 06:16 86 100 07/05/24 06:11 84 100 07/05/24 06:06 88 100 07/05/24 06:03 89 118/58 L 07/05/24 06:01 90 100 07/05/24 05:56 90 100 07/05/24 05:51 103 H 100 07/05/24 05:48 110 H 137/61 07/05/24 05:46 118 H 100 07/05/24 05:41 107 H 99 07/05/24 05:36 107 H 100 07/05/24 05:33 94 H 114/62 07/05/24 05:31 110 H 96 07/05/24 05:26 93 H 100 07/05/24 05:21 94 H 100 07/05/24 05:17 100 H 126/59 L 07/05/24 05:16 99 H 100 07/05/24 05:11 114 H 98 07/05/24 05:06 103 H 100 07/05/24 05:02 105 H 133/78 07/05/24 05:01 111 H 100 07/05/24 05:00 18 07/05/24 05:00 98.1 F 18 07/05/24 04:56 122 H 100 07/05/24 04:51 137 H 100 07/05/24 04:46 108 H 100 07/05/24 04:41 99 H 99 07/05/24 04:36 115 H 100 07/05/24 04:31 130 H 100 07/05/24 04:26 123 H 100 07/05/24 04:21 125 H 100 07/05/24 04:16 116 H 100 07/05/24 04:11 103 H 100 07/05/24 04:06 113 H 99 07/05/24 04:03 120 H 112/59 L 07/05/24 04:01 118 H 100 07/05/24 03:56 133 H 100 07/05/24 03:53 118 H 90 07/05/24 03:51 105 H 100 07/05/24 03:47 113 H 131/81 07/05/24 03:46 107 H 100 07/05/24 03:41 104 H 100 07/05/24 03:36 103 H 100 07/05/24 03:32 111 H 140/72 07/05/24 03:31 97 H 100 07/05/24 03:26 99 H 100 07/05/24 03:21 102 H 100 07/05/24 03:17 200 H 139/69 07/05/24 03:16 102 H 100 07/05/24 03:11 100 H 100 07/05/24 03:06 111 H 100 07/05/24 03:03 127 H 157/70 H 07/05/24 03:01 108 H 100 07/05/24 02:59 116 H 88 L 07/05/24 02:56 107 H 100 07/05/24 02:51 101 H 100 07/05/24 02:46 128 H 100 07/05/24 02:41 99 H 100 07/05/24 02:36 103 H 100 07/05/24 02:33 115 H 133/60 07/05/24 02:31 99 H 100 07/05/24 02:26 128 H 93 07/05/24 02:24 119 H 89 L 07/05/24 02:21 136 H 95 07/05/24 02:19 123 H 126/75 07/05/24 02:16 116 H 100 07/05/24 02:11 107 H 100 07/05/24 02:06 112 H 100 07/05/24 02:03 108 H 135/95 07/05/24 02:01 99 H 100 07/05/24 01:56 103 H 100 07/05/24 01:51 105 H 100 07/05/24 01:48 98 H 142/65 H 07/05/24 01:46 116 H 100 07/05/24 01:41 127 H 100 07/05/24 01:36 93 H 100 07/05/24 01:34 94 H 125/88 07/05/24 01:31 91 H 100 07/05/24 01:26 93 H 100 07/05/24 01:21 91 H 100 07/05/24 01:18 102 H 130/62 07/05/24 01:17 105 H 138/58 L 07/05/24 01:16 120 H 100 07/05/24 01:11 98 H 100 07/05/24 01:06 110 H 100 07/05/24 01:03 100 H 146/66 H 07/05/24 01:01 98 H 100 07/05/24 01:00 18 07/05/24 01:00 98.4 F 18 07/05/24 00:56 95 H 100 07/05/24 00:51 91 H 100 07/05/24 00:48 94 H 133/64 07/05/24 00:46 93 H 100 07/05/24 00:41 118 H 100 07/05/24 00:36 110 H 100 07/05/24 00:33 111 H 145/79 H 07/05/24 00:31 112 H 100 07/05/24 00:26 90 100 07/05/24 00:21 93 H 100 07/05/24 00:17 98 H 129/59 L 07/05/24 00:16 100 H 100 07/05/24 00:11 94 H 100 07/05/24 00:09 107 H 92 07/05/24 00:06 125 H 95 07/05/24 00:03 114 H 126/82 07/05/24 00:01 89 100 07/04/24 23:56 98 H 100 07/04/24 23:51 99 H 100 07/04/24 23:47 96 H 146/79 H 07/04/24 23:46 103 H 100 07/04/24 23:41 91 H 98 07/04/24 23:39 101 H 87 L 07/04/24 23:36 97 H 100 07/04/24 23:32 96 H 139/74 07/04/24 23:31 101 H 100 07/04/24 23:30 18 07/04/24 23:30 98.4 F 18 07/04/24 23:26 100 H 100 07/04/24 23:22 97 H 93 07/04/24 23:21 91 H 100 07/04/24 23:18 112 H 152/72 H 07/04/24 23:16 95 H 100 07/04/24 23:11 100 H 100 07/04/24 23:06 116 H 99 07/04/24 23:02 112 H 141/78 H 07/04/24 23:01 132 H 100 07/04/24 22:56 100 H 100 07/04/24 22:51 100 H 100 07/04/24 22:47 99 H 132/70 07/04/24 22:46 101 H 99 07/04/24 22:41 97 H 100 07/04/24 22:36 103 H 100 07/04/24 22:33 111 H 165/93 H 07/04/24 22:31 89 100 07/04/24 22:26 102 H 100 07/04/24 22:21 105 H 99 07/04/24 22:18 83 144/83 H 07/04/24 22:16 101 H 100 07/04/24 22:11 97 H 100 07/04/24 22:06 98 H 100 07/04/24 22:02 101 H 141/90 H 07/04/24 22:01 88 100 07/04/24 21:56 97 H 100 07/04/24 21:51 101 H 100 07/04/24 21:47 91 H 136/83 07/04/24 21:46 96 H 100 07/04/24 21:41 98 H 100 07/04/24 21:36 92 H 100 07/04/24 21:33 85 134/82 07/04/24 21:31 98 H 100 07/04/24 21:26 93 H 100 07/04/24 21:21 99 H 100 07/04/24 21:18 95 H 136/67 07/04/24 21:16 91 H 100 07/04/24 21:11 87 100 07/04/24 21:06 109 H 100 07/04/24 21:02 87 130/60 07/04/24 21:01 86 100 07/04/24 21:00 18 07/04/24 21:00 98.1 F 18 07/04/24 20:56 94 H 99 07/04/24 20:51 89 100 07/04/24 20:48 89 138/73 07/04/24 20:46 97 H 100 07/04/24 20:41 104 H 100 07/04/24 20:36 88 100 07/04/24 20:33 98 H 141/72 H 07/04/24 20:31 98 H 100 07/04/24 20:26 96 H 100 07/04/24 20:21 98 H 98 07/04/24 20:17 94 H 130/72 07/04/24 20:16 101 H 100 07/04/24 20:11 101 H 100 07/04/24 20:06 94 H 100 07/04/24 20:05 95 H 146/69 H Coding Level of Care Code 54245 SUB INP/OBS CARE 09/04MIN Diagnoses Arrest of dilation, delivered, current hospitalization O62.1
[2024-07-05] MEDS ORDERED: LIDOCAINE 2%/EPINEPHRINE 1:200,000 20 ML PF ONE (08:18)
[2024-07-05] MEDS ORDERED: DEXAMETHASONE SOD INJ 4 MG/ML VIAL ONE (08:19)
[2024-07-05] MEDS ORDERED: ONDANSETRON INJ 2 MG/ML 2 ML VIAL ONE (08:19)
[2024-07-05] MEDS ORDERED: PHENYLEPHRINE HCL 25 MG/250 ML NSS IV ONE (08:19)
[2024-07-05] MEDS: ACETAMINOPHEN 500 MG TAB PO SCH (08:32)
--- NOTE | 2024-07-05 08:40 | Communication Note ---
Date of Service: July 05, 2024 Decision made to undergo due to failure to progress. Epidural in place and working well. Patient healthy. New consent obtained. ASA2E.
[2024-07-05] MEDS: CITRIC ACID/SODIUM CITRATE 15 ML UDC PO SCH (08:45)
[2024-07-05] MEDS: AZITHROMYCIN 250 MG TAB PO STA (09:00)
[2024-07-05] MEDS: ceFAZolin 3000MG 3,000 MG/72.5 ML BAG IV SCH (09:26)
[2024-07-05 09:29] LABS: Hematocrit (blood only) 35.9 % (37.0-47.0); Hemoglobin 11.3 g/dl (12.0-16.0); Mean Corpuscular Hemoglobin 27.2 pg (25.0-34.0); Mean Corpuscular Hgb Conc 31.5 g/dL (32.0-36.0); Mean Corpuscular Volume 86.5 fL (80.0-100.0); Mean Platelet Volume 11.5 fL (9.4-12.4); Platelet Count 257 K/uL (130-400); RDW Coefficient of Variation 13.8 % (11.5-14.5); Red Blood Count 4.15 M/uL (4.20-5.40); White Blood Count 27.02 K/ul (4.8-10.8)
[2024-07-05] MEDS ORDERED: OXYTOCIN 10 UNITS/ML VIAL ONE (09:43)
[2024-07-05] MEDS ORDERED: MoRPHine SULFATE PF 1 MG/ML 10 ML AMP/VIAL ONE (09:44)
[2024-07-05] MEDS ORDERED: miSOPROStoL 200 MCG TAB ONE (10:31)
--- NOTE | 2024-07-05 10:40 | Anesthesia Procedure Note ---
Date of Service July 05, 2024 Anesthesia Post Epidural Note Vital Signs Vital Signs: Temp Pulse Resp BP Pulse Ox O2 Del Method 36.7 C 114 H 20 132/82 100 Room Air 07/05/24 07:25 07/05/24 10:38 07/05/24 09:00 07/05/24 09:33 07/05/24 10:38 07/05/24 07:21 Pain Intensity Back: Pain Intensity: 0 Notes Mental Status: alert / awake / arousable and participated in evaluation Nausea / Vomiting: adequately controlled Pain: adequately controlled Airway Patency, RR, SpO2: stable & adequate BP & HR: stable & adequate Hydration State: stable & adequate Neuraxial Anesthesia: was administered and sensory block is resolving Anesthetic Complications: no major complications apparent Epidural: Removed without complications and With tip intact
--- NOTE | 2024-07-05 10:43 | Anesthesiology Progress Note ---
Date of Service July 05, 2024 Anesthesia Post Procedure Vital Signs Vital Signs: Temp Pulse Resp BP Pulse Ox O2 Del Method 07/05/24 10:40 103 H 108/49 L 07/05/24 10:39 111 H 114/49 L 07/05/24 10:38 114 H 100 07/05/24 09:33 102 H 132/82 07/05/24 09:31 107 H 100 07/05/24 09:26 100 H 100 07/05/24 09:21 107 H 100 07/05/24 09:17 110 H 135/78 07/05/24 09:16 107 H 100 07/05/24 09:11 115 H 100 07/05/24 09:06 112 H 100 07/05/24 09:01 120 H 100 07/05/24 09:00 20 07/05/24 09:00 20 07/05/24 09:00 20 07/05/24 09:00 20 07/05/24 08:56 124 H 100 07/05/24 08:51 116 H 100 07/05/24 08:46 116 H 99 07/05/24 08:41 114 H 100 07/05/24 08:36 122 H 100 07/05/24 08:33 131 H 119/55 L 07/05/24 08:31 109 H 100 07/05/24 08:26 109 H 100 07/05/24 08:21 119 H 100 07/05/24 08:18 114 H 124/68 07/05/24 08:16 107 H 100 07/05/24 08:11 109 H 100 07/05/24 08:06 106 H 100 07/05/24 08:03 104 H 122/72 07/05/24 08:01 105 H 100 07/05/24 08:00 18 07/05/24 08:00 18 07/05/24 07:56 111 H 100 07/05/24 07:51 120 H 100 07/05/24 07:47 118 H 132/75 07/05/24 07:46 122 H 100 07/05/24 07:45 108 H 93 07/05/24 07:41 118 H 100 07/05/24 07:36 98 H 100 07/05/24 07:34 104 H 133/67 07/05/24 07:33 110 H 140/105 H 07/05/24 07:31 116 H 99 07/05/24 07:30 16 07/05/24 07:30 16 07/05/24 07:26 110 H 100 07/05/24 07:25 36.7 C 18 07/05/24 07:25 18 07/05/24 07:25 36.7 C 18 07/05/24 07:21 Room Air 07/05/24 07:21 111 H 100 07/05/24 07:17 108 H 134/62 07/05/24 07:16 110 H 100 07/05/24 07:11 111 H 100 07/05/24 07:06 102 H 100 07/05/24 07:03 98 H 121/65 07/05/24 07:01 97 H 100 07/05/24 06:56 93 H 100 07/05/24 06:51 92 H 100 07/05/24 06:47 88 103/59 L 07/05/24 06:46 81 99 07/05/24 06:41 83 100 07/05/24 06:36 83 100 07/05/24 06:33 88 119/58 L 07/05/24 06:31 100 H 100 07/05/24 06:26 83 100 07/05/24 06:21 82 100 07/05/24 06:18 88 116/56 L 07/05/24 06:16 86 100 07/05/24 06:11 84 100 07/05/24 06:06 88 100 07/05/24 06:03 89 118/58 L 07/05/24 06:01 90 100 07/05/24 05:56 90 100 07/05/24 05:51 103 H 100 07/05/24 05:48 110 H 137/61 07/05/24 05:46 118 H 100 07/05/24 05:41 107 H 99 07/05/24 05:36 107 H 100 07/05/24 05:33 94 H 114/62 07/05/24 05:31 110 H 96 07/05/24 05:26 93 H 100 07/05/24 05:21 94 H 100 07/05/24 05:17 100 H 126/59 L 07/05/24 05:16 99 H 100 07/05/24 05:11 114 H 98 07/05/24 05:06 103 H 100 07/05/24 05:02 105 H 133/78 07/05/24 05:01 111 H 100 07/05/24 05:00 18 07/05/24 05:00 36.7 C 18 07/05/24 04:56 122 H 100 07/05/24 04:51 137 H 100 07/05/24 04:46 108 H 100 07/05/24 04:41 99 H 99 07/05/24 04:36 115 H 100 07/05/24 04:31 130 H 100 07/05/24 04:26 123 H 100 07/05/24 04:21 125 H 100 07/05/24 04:16 116 H 100 07/05/24 04:11 103 H 100 07/05/24 04:06 113 H 99 07/05/24 04:03 120 H 112/59 L 07/05/24 04:01 118 H 100 07/05/24 03:56 133 H 100 07/05/24 03:53 118 H 90 07/05/24 03:51 105 H 100 07/05/24 03:47 113 H 131/81 07/05/24 03:46 107 H 100 07/05/24 03:41 104 H 100 07/05/24 03:36 103 H 100 07/05/24 03:32 111 H 140/72 07/05/24 03:31 97 H 100 07/05/24 03:26 99 H 100 07/05/24 03:21 102 H 100 07/05/24 03:17 200 H 139/69 07/05/24 03:16 102 H 100 07/05/24 03:11 100 H 100 07/05/24 03:06 111 H 100 07/05/24 03:03 127 H 157/70 H 07/05/24 03:01 108 H 100 07/05/24 02:59 116 H 88 L 07/05/24 02:56 107 H 100 07/05/24 02:51 101 H 100 07/05/24 02:46 128 H 100 07/05/24 02:41 99 H 100 07/05/24 02:36 103 H 100 07/05/24 02:33 115 H 133/60 07/05/24 02:31 99 H 100 07/05/24 02:26 128 H 93 07/05/24 02:24 119 H 89 L 07/05/24 02:21 136 H 95 07/05/24 02:19 123 H 126/75 07/05/24 02:16 116 H 100 07/05/24 02:11 107 H 100 07/05/24 02:06 112 H 100 07/05/24 02:03 108 H 135/95 07/05/24 02:01 99 H 100 07/05/24 01:56 103 H 100 07/05/24 01:51 105 H 100 07/05/24 01:48 98 H 142/65 H 07/05/24 01:46 116 H 100 07/05/24 01:41 127 H 100 07/05/24 01:36 93 H 100 07/05/24 01:34 94 H 125/88 07/05/24 01:31 91 H 100 07/05/24 01:26 93 H 100 07/05/24 01:21 91 H 100 07/05/24 01:18 102 H 130/62 07/05/24 01:17 105 H 138/58 L 07/05/24 01:16 120 H 100 07/05/24 01:11 98 H 100 07/05/24 01:06 110 H 100 07/05/24 01:03 100 H 146/66 H 07/05/24 01:01 98 H 100 07/05/24 01:00 18 07/05/24 01:00 36.9 C 18 07/05/24 00:56 95 H 100 07/05/24 00:51 91 H 100 07/05/24 00:48 94 H 133/64 07/05/24 00:46 93 H 100 07/05/24 00:41 118 H 100 07/05/24 00:36 110 H 100 07/05/24 00:33 111 H 145/79 H 07/05/24 00:31 112 H 100 07/05/24 00:26 90 100 07/05/24 00:21 93 H 100 07/05/24 00:17 98 H 129/59 L 07/05/24 00:16 100 H 100 07/05/24 00:11 94 H 100 07/05/24 00:09 107 H 92 07/05/24 00:06 125 H 95 07/05/24 00:03 114 H 126/82 07/05/24 00:01 89 100 07/04/24 23:56 98 H 100 07/04/24 23:51 99 H 100 07/04/24 23:47 96 H 146/79 H 07/04/24 23:46 103 H 100 07/04/24 23:41 91 H 98 07/04/24 23:39 101 H 87 L 07/04/24 23:36 97 H 100 07/04/24 23:32 96 H 139/74 07/04/24 23:31 101 H 100 07/04/24 23:30 18 07/04/24 23:30 36.9 C 18 07/04/24 23:26 100 H 100 07/04/24 23:22 97 H 93 07/04/24 23:21 91 H 100 07/04/24 23:18 112 H 152/72 H 07/04/24 23:16 95 H 100 07/04/24 23:11 100 H 100 07/04/24 23:06 116 H 99 07/04/24 23:02 112 H 141/78 H 07/04/24 23:01 132 H 100 07/04/24 22:56 100 H 100 07/04/24 22:51 100 H 100 07/04/24 22:47 99 H 132/70 07/04/24 22:46 101 H 99 07/04/24 22:41 97 H 100 07/04/24 22:36 103 H 100 07/04/24 22:33 111 H 165/93 H 07/04/24 22:31 89 100 07/04/24 22:26 102 H 100 07/04/24 22:21 105 H 99 07/04/24 22:18 83 144/83 H 07/04/24 22:16 101 H 100 07/04/24 22:11 97 H 100 07/04/24 22:06 98 H 100 07/04/24 22:02 101 H 141/90 H 07/04/24 22:01 88 100 07/04/24 21:56 97 H 100 07/04/24 21:51 101 H 100 07/04/24 21:47 91 H 136/83 07/04/24 21:46 96 H 100 07/04/24 21:41 98 H 100 07/04/24 21:36 92 H 100 24 21:33 85 134/82 07/04/24 21:31 98 H 100 07/04/24 21:26 93 H 100 07/04/24 21:21 99 H 100 07/04/24 21:18 95 H 136/67 07/04/24 21:16 91 H 100 07/04/24 21:11 87 100 07/04/24 21:06 109 H 100 07/04/24 21:02 87 130/60 07/04/24 21:01 86 100 07/04/24 21:00 18 07/04/24 21:00 36.7 C 18 07/04/24 20:56 94 H 99 07/04/24 20:51 89 100 07/04/24 20:48 89 138/73 07/04/24 20:46 97 H 100 07/04/24 20:41 104 H 100 07/04/24 20:36 88 100 07/04/24 20:33 98 H 141/72 H 07/04/24 20:31 98 H 100 07/04/24 20:26 96 H 100 07/04/24 20:21 98 H 98 07/04/24 20:17 94 H 130/72 07/04/24 20:16 101 H 100 07/04/24 20:11 101 H 100 07/04/24 20:06 94 H 100 07/04/24 20:05 95 H 146/69 H 07/04/24 20:01 94 H 100 07/04/24 19:56 97 H 100 07/04/24 19:51 92 H 100 07/04/24 19:47 87 128/58 L 07/04/24 19:46 92 H 100 07/04/24 19:41 93 H 100 07/04/24 19:36 85 100 07/04/24 19:32 102 H 143/74 H 07/04/24 19:31 90 100 07/04/24 19:26 102 H 100 07/04/24 19:21 97 H 100 07/04/24 19:18 92 H 140/69 07/04/24 19:16 108 H 100 07/04/24 19:11 103 H 100 07/04/24 19:10 36.7 C 18 07/04/24 19:10 18 07/04/24 19:10 36.7 C 18 07/04/24 19:06 108 H 99 07/04/24 19:03 99 H 133/67 11/24/24 19:01 100 H 99 07/04/24 18:56 110 H 100 07/04/24 18:51 98 H 98 07/04/24 18:47 96 H 106/57 L 07/04/24 18:46 95 H 98 07/04/24 18:43 93 H 109/52 L 07/04/24 18:41 92 H 99 07/04/24 18:40 66 100/55 L 07/04/24 18:36 69 100 07/04/24 18:31 125 H 130/73 99 07/04/24 18:26 99 H 99 07/04/24 18:21 97 H 100 07/04/24 18:16 102 H 100 07/04/24 18:12 37.1 C 100 H 18 149/85 H 07/04/24 18:11 97 H 100 07/04/24 17:00 88 146/81 H 07/04/24 16:07 95 H 141/81 H 07/04/24 15:57 105 H 141/95 H 07/04/24 15:51 100 H 135/92 07/04/24 15:45 37.1 C 18 Pain Intensity Back: Pain Intensity: 0 Transfer of Care Handoff Completed per policy Notes Mental Status: alert / awake / arousable Patient Amnestic to Procedure: Yes Nausea / Vomiting: adequately controlled Pain: adequately controlled Airway Patency, RR, SpO2: stable & adequate BP & HR: stable & adequate Hydration State: stable & adequate Neuraxial Anesthesia: was administered and sensory block is resolving Anesthetic Complications: no major complications apparent and Pt Satisfied with anesthetic care
[2024-07-05] MEDS ORDERED: ePHEDrine sulfate 50 MG/ML AMP IV PRN (10:49)
[2024-07-05] MEDS ORDERED: PROMETHAZINE 6.25 MG/50.25 ML BAG IV PRN (10:49)
[2024-07-05] MEDS ORDERED: NALBUPHINE HCL INJ 10 MG/ML AMP IV PRN (10:49)
[2024-07-05] MEDS ORDERED: METOCLOPRAMIDE HCL 20 MG in SODIUM CHLORIDE 0.9% 50 ML IV PRN (10:49)
[2024-07-05] MEDS ORDERED: NALOXONE HCL 0.4 MG/1 ML VIAL/CARP IV PRN (10:49)
[2024-07-05] MEDS ORDERED: DROPERIDOL 5 MG/2 ML VIAL IV PRN (10:49)
[2024-07-05] MEDS ORDERED: diphenhydrAMINE 50 MG/ML VIAL IV PRN ×2 (10:49→11:45)
[2024-07-05] MEDS ORDERED: MoRPHine SULFATE PF 1 MG/ML 10 ML AMP/VIAL EPI ONE (10:49)
[2024-07-05] MEDS ORDERED: HYDROmorphone INJ 0.5 MG/0.5 ML SYR IV PRN (10:49)
[2024-07-05] MEDS ORDERED: diphenhydrAMINE Capsule 25 MG CAP PO PRN (10:49)
[2024-07-05] MEDS ORDERED: NALOXONE HCL 0.08 MG in SYRINGE 1.8 ML IV PRN (10:49)
[2024-07-05] MEDS ORDERED: ONDANSETRON INJ 2 MG/ML 2 ML VIAL IV PRN (10:49)
[2024-07-05] MEDS ORDERED: NALOXONE HCL 1 MG in SODIUM CHLORIDE 0.9% 1,000 ML IV PRN (10:49)
[2024-07-05] MEDS ORDERED: HYDROCORTISONE ACETATE 25 MG SUPP PR PRN (10:51)
[2024-07-05] MEDS ORDERED: CALCIUM CARBONATE 500 MG CHEWABLE TAB PO PRN (10:51)
[2024-07-05] MEDS ORDERED: BENZOCAINE 20% SPRY 85 APPLN/85 GM CAN EXT PRN (10:51)
--- NOTE | 2024-07-05 10:51 | Operative Report ---
PG Post Operative Report Pre & Post Diagnosis Operation Date: 07/05/24 10:00 Pre-Op Diagnosis: 1.Intrauterine at 40 weeks gestation 2.Failure to progress Post-Op Diagnosis: 1.Intrauterine at 40weeks gestation 2.Failure to progress 3.Thick meconium I identified the patient and participated in the time-out.: Yes Procedure Operation Date: 07/05/24 10:00 Actual Procedures p Primary low transverse Section in for [facility] at 0955 07/05/24(Bilateral) - Fransisca Landeros MD, FACOG Surgeon Fransisca Landeros MD, FACOG Product Mgr Mary Colmenares, MS 2, Rigo Busch MD Estimated Blood Loss 1,215 Findings Consistent with Post-Op Diagnosis normal appearing uterus, tubes and ovaries. right paratubal cyst . apgars 8/8, 4240gm, 9#5oz. Very distended sindhu Fluids 1500cc ivf uop--150cc Specimens none Drains Monson Anesthesia Type Labor Epidural Complications none Disposition Accompanied Patient To Recovery: Yes Disposition: L&D Indications Patient is a 23yowf here for iol. Hx of vavd and shoulder dystocia in her last . She progressed to 8cm and failed to progress. Description of Procedure The patient was taken to the operating room where she was identified verbally and by bracelet. She was transferred to the operating table where her epidural was dosed by anesthesia. She was then placed in the supine position with a leftward tilt. A Monson catheter had been placed sterilely. the patient was prepped and draped in a normal standard fashion. the anesthetic was tested and found to be adequate. A time-out was held, identifying correct patient, procedure, positioning and preoperative antibiotics. There were no concerns. A Pfannenstiel skin incision was made with a knife and taken down to the underlying layer of fascia with the knife and Bovie electrocautery. Bleeding was attended to with the Bovie. The fascia was incised in the midline with the knife and taken out laterally with scissors. The superior edge of the fascial incision was grasped, elevated and the underlying layer of rectus muscle was taken off bluntly and with scissors. In a similar fashion, the inferior edge of the fascial incision was grasped, elevated and the underlying layer of rectus muscle was taken off bluntly and with scissors. The muscles were bluntly in the midline. The peritoneum was entered bluntly. The incision was then stretched. The bladder blade was placed. The SINDHU was very distended and ballooned. Additionally there was bruising noted on the left side of the SINDHU. The bladder was found to be quite low under this, so a hysterotomy incision was made with the knife and stretched with the operators fingers. Thick green meconium noted when this was done. The operators hand was placed into the incision and the head was delivered atraumatically. No nuchal cord. The nose and mouth were bulb suctioned. the rest of the was then delivered without difficulty. The nose and mouth were again bulb suctioned. The cord was clamped and cut and the was then handed off to the awaiting repair order clerk for drying and attention. Cord blood and segment were obtained. The placenta was Manually extracted. The uterus was exteriorized and cleared of all clot and debris with moistened laparotomy sponges. the hysterotomy incision was identified and the edges grasped with T clamps. The hysterotomy incision repair was started on the left side but unfortunately the stitch pulled through the very thin SINDHU. Then we went to the right side and started the stitch again and incorporated the entire incision. The right side of the incision was then imbricated with the stitch started from the left side. Posterior cul-de-sac was irrigated and cleared of all clot and debris. The hysterotomy incision was again inspected and 3 stitches needed for hemostasis on the left side. the uterus was reinteriorized. Hysterotomy incision was again inspected and one further stitch needed. Hemostasis was then noted to be good. Perclot was then placed over the incision and pressure was held for one minute. the hysterotomy incision was inspected again and hemostatic. The rectus muscles were hemostatic. The fascia was then reapproximated with 0 Vicryl starting at the edges and meeting in the midline. The subcuticular tissues were copiously irrigated and bleeding was attended to with cautery. The skin was then closed with 4-0 Vicryl in a subcuticular fashion. All sponge, lap and needle count were correct 2. The patient tolerated the procedure well and was taken to recovery in stable condition. 600mcg of cytotec was placed rectally prior to leaving the OR. The uterus was 1 above the fundus and to the right. Fundal pressure after the procedure with a small gush and small clot noted. I attest to the content of the Intraoperative Record and any orders documented therein. Any exceptions are noted below. OB Procedure Charges 43445
[2024-07-05] MEDS ORDERED: NO NARCOTICS OR SEDATIVES SCH (11:00)
[2024-07-05] MEDS ORDERED: DC INTRASPINAL MORPHINE SCH (11:00)
[2024-07-05] MEDS ORDERED: MEPERIDINE HCL 25 MG/ML CARP/VIAL IV PRN (11:37)
[2024-07-05] MEDS: KETOROLAC 30 MG/ML VIAL IV SCH (11:38)
[2024-07-05] MEDS: OXYTOCIN 20 UNITS/LR 1,002 ML IV SCH (11:42)
[2024-07-05] MEDS ORDERED: Nursing to Pharmacy Communication SCH (12:15)
[2024-07-05] MEDS: DIPHTHER/TETAN/PERTUS Vaccine (Tdap, Adol/Adult) 0.5mL IM ONE (12:39)
[2024-07-05] MEDS: SIMETHICONE 80 MG CHEW PO SCH (12:41)
[2024-07-05] MEDS: ACETAMINOPHEN 325 MG TAB PO SCH (17:19)
[2024-07-05] MEDS: DOCUSATE SODIUM 100 MG CAP PO SCH (21:43)
[2024-07-06] MEDS ORDERED: ONDANSETRON INJ 2 MG/ML 2 ML VIAL IV PRN (05:00)
[2024-07-06] MEDS ORDERED: HYDROmorphone INJ 0.5 MG/0.5 ML SYR IV PRN (05:00)
[2024-07-06] MEDS ORDERED: diphenhydrAMINE 50 MG/ML VIAL IV PRN (05:00)
[2024-07-06] MEDS ORDERED: MEPERIDINE HCL 25 MG/ML CARP/VIAL IV PRN (05:00)
[2024-07-06] MEDS ORDERED: diphenhydrAMINE Capsule 25 MG CAP PO PRN (05:00)
[2024-07-06] MEDS ORDERED: oxyCODONE HCL IR 5 MG TAB (IMMEDIATE RELEASE) PO PRN (05:00)
[2024-07-06] MEDS ORDERED: PROMETHAZINE 12.5 MG/50.5 ML BAG IV PRN (05:00)
--- NOTE | 2024-07-06 05:51 | Obstetrical Progress Note ---
Date of Service July 06, 2024 Assessment & Plan (1) Encounter for care and examination after delivery: Plan Encourage ambulation Continue Tylenol 650mg PO, ibuprofen 600mg PO, ketorolac 30mg IV,or hydromorphone 0.25 IV as needed Ordered Monson cath to allow bladder rest. Plan voiding trail on 07/07/24 Continue to monitor for signs low Hgb Plan for discharge 07/07/24 Admission and Anticipated Discharge Date Admission Date: July 04, 2024 Supervising Physician Co-Signing Physician Notes Resident Physician Supervision Note: I interviewed and examined the patient. Discussed with Dr. Clements and agree with findings and plan as documented in the note. Any exceptions or clarifications are listed here: [ ] Documented By: Jill Busch MD, FACOG Subjective Pt is 23 yo post-op day 1 s/p CS at 40w0d Ambulation:In room Voiding:void x 2 small amount (150ml), feel like bladder is still full Passing gas: yes BM: no Diet tolerance:regular diet Lochia:bloody, no clots Feeding type: formula Current pain level: 6 /10, just received meds from RN Resting comfortably this morning in NAD. Pt reports bladder is tender. Denies VIGIL, CP, SOB, N/V/D, LE pain/swelling. Review of Systems 2 Review of Systems: As per HPI Physical Exam Constitutional: WD/WN, vitals as above Respiratory: normal respiratory effort, lungs clear to auscultation Gastrointestinal (Abdomen): normal bowel sounds, soft, nontender, no hepatosplenomegaly Uterine fundus firm and 1-2 cm above level of umbilicus Dressing removed, Incision is clean dry and well approximated. Steri strips in place. Neurologic: PERRL, EOMI, accommodation nl, no face palsy, no dysarthria Moving all 4 extremities on command Psychiatric: A+Ox3, euthymic affect Results & Data Vital Signs (Past 12 Hours) Vital Signs Temp Pulse Resp BP Pulse Ox O2 Del Method 07/06/24 04:42 17 99 07/06/24 03:50 16 98 07/06/24 02:52 36.6 C 118 H 16 122/74 98 Room Air 07/06/24 02:18 15 97 07/06/24 01:16 16 99 07/06/24 00:50 16 98 07/05/24 23:05 16 98 07/05/24 23:00 36.7 C 101 H 16 120/75 95 Room Air 07/05/24 22:15 17 97 07/05/24 21:30 96 07/05/24 20:30 16 96 07/05/24 19:50 16 07/05/24 19:50 36.4 C L 80 16 112/74 98 Room Air 07/05/24 18:00 18 97 Resident Activity Tracking Resident Involvement: Resident Care Provided Care Provided: Adult Hospital Medicine
[2024-07-06] MEDS ORDERED: CITRIC ACID/SODIUM CITRATE 15 ML UDC PO SCH (06:00)
[2024-07-06] MEDS ORDERED: AZITHROMYCIN 500 MG in SODIUM CHLORIDE 0.9% 250 ML IV SCH (06:00)
[2024-07-06 06:14] LABS: Basophils # (auto) 0.03 K/uL (0.00-0.20); Basophils % (auto) 0.2 %; Eosinophils % (auto) 0.7 %; Hemoglobin 8.5 g/dl (12.0-16.0); Immature Granulocytes # (auto) 0.15 K/uL (0.01-0.20); Immature Granulocytes % (auto) 1.1 %; Lymphocytes # (auto) 1.03 K/uL (1.20-3.40); Lymphocytes % (auto) 7.4 %; Mean Corpuscular Hemoglobin 27.6 pg (25.0-34.0); Mean Corpuscular Hgb Conc 32.7 g/dL (32.0-36.0); Mean Corpuscular Volume 84.4 fL (80.0-100.0); Mean Platelet Volume 11.9 fL (9.4-12.4); Monocytes # (auto) 0.71 K/uL (0.11-0.59); Monocytes % (auto) 5.1 %; Neutrophils # (auto) 11.98 K/uL (1.40-6.50); Neutrophils % (auto) 85.5 %; Platelet Count 201 K/uL (130-400); RDW Coefficient of Variation 13.6 % (11.5-14.5); RDW Standard Deviation 41.9 fL (36.4-46.3); Red Blood Count 3.08 M/uL (4.20-5.40)
[2024-07-06] MEDS: PRENATAL VITAMIN 1 TAB PO SCH (08:31)
[2024-07-06] MEDS: FERROUS SULFATE 325 MG TAB PO SCH (08:31)
[2024-07-06] MEDS ORDERED: KETOROLAC 30 MG/ML VIAL IV PRN (10:39)
[2024-07-06] MEDS: IBUPROFEN 600 MG TAB PO SCH (12:12)
[2024-07-06 15:19] VITALS: O2SAT 98
[2024-07-06] MEDS: MAGNESIUM HYDROXIDE SUSP 30 ML UDC PO PRN (16:45)
[2024-07-06] MEDS: bisacodyL 5 MG TABEC PO SCH (19:54)
--- NOTE | 2024-07-07 05:41 | Obstetrical Progress Note ---
Date of Service July 07, 2024 Assessment & Plan (1) Encounter for care and examination after delivery: Plan Encourage ambulation Continue pain meds as needed Continue to monitor for signs low Hgb Plan for discharge 07/07/24 Admission and Anticipated Discharge Date Admission Date: July 04, 2024 Supervising Physician Co-Signing Physician Notes Resident Physician Supervision Note: I interviewed and examined the patient. Discussed with Dr. Clements and agree with findings and plan as documented in the note. Any exceptions or clarifications are listed here: PP2 s/p pLTCS, doing well. VSS, exam benign, incision c/d/i. h/h 7.1, appropriate given qbl. Pt asymptomatic, will use iron. Ok for dc today Documented By: Mercedes Webber MD Subjective Pt is 23 yo post-op day 1 s/p CS at 40w0d. Was having difficulty voiding on 07/06/24. Pt reports she is able to urinate normally this morning. Hbg is 7.1. Pt denies dizziness or significant fatigue. Ambulation:In room Voiding:normally, jones cath removed Passing gas: yes BM: yes Diet tolerance:regular diet Lochia:bloody, no clots Feeding type: formula Current pain level: 2 /10, just received meds from RN Resting comfortably this morning in NAD. Pt reports bladder is tender. Denies VIGIL, CP, SOB, N/V/D, LE pain/swelling. Review of Systems Review of Systems: As per HPI Physical Exam Constitutional: WD/WN, vitals as above Respiratory: normal respiratory effort, lungs clear to auscultation Gastrointestinal (Abdomen): normal bowel sounds, soft, nontender, no hepatosplenomegaly Fundus is firm and at level of umbilicus Neurologic: PERRL, EOMI, accommodation nl, no face palsy, no dysarthria Psychiatric: A+Ox3, euthymic affect Results & Data Vital Signs (Past 12 Hours) Vital Signs Pulse BP O2 Del Method 07/06/24 20:00 Room Air 07/06/24 20:00 118 H 133/78 Resident Activity Tracking Resident Involvement: Resident Care Provided Care Provided: Adult Hospital Medicine
[2024-07-07 06:20] LABS: Hematocrit (blood only) 22.1 % (37.0-47.0); Hemoglobin 7.1 g/dl (12.0-16.0)
[2024-07-07 07:48] VITALS: BP 122/73; PULSE 108; RESP 16; TEMP 97.5
[2024-07-07] MEDS: SENNA 8.6 MG TAB PO PRN (08:17)
[2024-07-07] MEDS ORDERED: bisacodyL 10 MG SUPP PR PRN (10:39)
[2024-07-07] MEDS ORDERED: IBUPROFEN 600 MG TAB PO PRN (10:39)
[2024-07-07] MEDS ORDERED: ACETAMINOPHEN 325 MG TAB PO PRN (16:39)
== END 2024-07-07 10:58 | disposition home or self-care (01) | DRG 788 ==
LOC: OPB 15:26 → 4S1 15:28 → 4E2 07-05 13:00